=== PATIENT | female | born 1980 | race Caucasian/White ===

== ENCOUNTER 2022-02-04 16:37 | Emergency (ER) | payer OTHER, SELFPAY ==
--- NOTE | ~2022-02-04 | CT_ITS ---
EXAMINATION: CT ABDOMEN AND PELVIS WITHOUT CONTRAST CLINICAL INFORMATION: Left flank pain, hematuria. COMPARISON: Renal ultrasound 01/11/2017. TECHNIQUE: Multidetector volumetric imaging was performed from the superior aspect of the liver through the pubic symphysis. Sagittal and coronal reformatted images were obtained on the technologist's workstation. This CT examination was performed using dose optimization techniques as appropriate, variously including the following: *Automated exposure control *Adjustment of mA and/or kV according to patient size (this includes techniques or standardized protocols for targeted exams where dose is matched to indication/reason for exam; i.e. extremities or head) *Use of iterative reconstruction technique DLP: 488 mGy-cm FINDINGS: LUNG BASES: No focal consolidation or pleural effusion. There is a triangularly shaped 3 mm perifissural nodule along the right minor fissure (4:15), favored to represent a lymph node. There is a tiny calcified nodule in the medial right lung base (4:91). LIVER, GALLBLADDER, AND BILIARY TREE: Hepatomegaly with decreased attenuation of the parenchyma suggesting hepatic steatosis. No discrete focal liver lesion in this limited noncontrast examination. Normal appearance of the gallbladder. No biliary ductal dilatation. PANCREAS: Unremarkable. SPLEEN: Unremarkable. ADRENAL GLANDS: Unremarkable. KIDNEYS AND URETERS: There is mild left hydroureteronephrosis with a 0.3 cm calculus in the left ureter at the level of L4-L5 (3:52). There are several additional left-sided renal calculi measuring up to 3 mm, in the number of approximately 5 in total. There are couple of punctate calculi in the upper right kidney. No perinephric fat stranding. BLADDER: Underdistended limiting its evaluation. GASTROINTESTINAL TRACT: The stomach and the small bowel are nondilated. Small duodenal diverticulum. There are some nonspecific fluid-filled loops of small bowel in the lower abdomen and pelvis. Normal appendix. Mild colonic diverticulosis. No pericolonic inflammatory changes or evidence of bowel obstruction. Moderate degree of colonic stool burden. ABDOMINAL WALL: No significant hernia is appreciated. LYMPH NODES: No pathologically enlarged lymph nodes. VASCULAR: Abdominal aorta is of normal diameter. PELVIC VISCERA: There is a 2.7 cm water density cyst in the left ovary, almost certainly benign, for which no imaging follow-up is routinely recommended in a premenopausal patient. OSSEOUS STRUCTURES: Grade 1 anterolisthesis of L5 on S1 with bilateral L5 pars defects. No aggressive appearing osseous abnormalities. CT/CT abdomen pelvis wo IV con IMPRESSION: 1. Mild left hydroureteronephrosis with a 0.3 cm calculus in the left ureter at the level of L4-L5. 2. Multiple additional bilateral renal calculi. 3. Hepatomegaly and hepatic steatosis. 4. Mild diverticulosis but no evidence of acute diverticulitis. 5. Fluid-filled loops of small bowel in the lower abdomen and pelvis could indicate gastroenteritis or diarrhea in the appropriate clinical context.
[2022-02-04 16:40] VITALS: BP 135/84; PULSE 85; RESP 20; TEMP 36.6; O2SAT 100; BMI 26.2
[2022-02-04 16:51] LABS: MANUAL DIFF FLAG NO
[2022-02-04 16:53] LABS: Basophils Percent Auto 0.4 % (0-2); Eosinophils Absolute Auto 0.1 X10*3/uL (0.0-0.4); Eosinophils Percent Auto 1.2 % (0-4); Hematocrit 37.7 % (37.0-47.0); Hemoglobin 12.4 g/dl (12.0-16.0); Imm Gran Abs Auto 0.02 X10*3/uL (0.00-0.03); Imm Gran Pct Auto 0.2 % (0.0-0.4); Lymphocytes Absolute Auto 3.2 X10*3/uL (1.2-4.9); Lymphocytes Percent Auto 35.1 % (20-40); Mean Corpuscular HGB Conc 32.9 g/dl (31.0-35.0); Mean Corpuscular Hemoglobin 27.7 pg (27.0-33.0); Mean Corpuscular Volume 84.3 fL (80.0-98.0); Mean Platelet Volume 9.2 fL (9.4-12.3); Monocytes Absolute Auto 0.7 X10*3/uL (0.1-1.2); Monocytes Percent Auto 7.2 % (2-11); Neutrophils Absolute Auto 5.2 x10*3/uL (2.0-8.3); Neutrophils Percent Auto 55.9 % (45-73); Platelet Count 345 X10*3/uL (160-400); Red Blood Count 4.47 X10*6/uL (4.20-5.50); Red Cell Distribution Width 12.3 % (11.0-16.0); White Blood Count 9.2 X10*3/uL (4.8-10.8)
[2022-02-04 17:13] LABS: Appearance Urine Clear; Color Urine Yellow; Glucose Urine UA Negative (Negative); Leukocyte Esterase Urine Negative (Negative); Nitrite Urine Negative (Negative); PH 6.5 (5.0-9.0); UMIC TRIGGER UACC YES; Urine Blood Moderate (2+) (Negative); Urine Ketones Trace mg/dL (Negative); Urine Protein Trace mg/dL (Neg-Trace)
[2022-02-04 17:17] LABS: Anion Gap 18 (12-20); Blood Urea Nitrogen 11 mg/dL (9-16); Calcium 9.5 mg/dL (8.4-10.2); Carbon Dioxide 23 mmol/L (22-29); Chloride 103 mmol/L (96-108); Estimated Glomerular Filt Rate > 60; Glucose Random 98 mg/dL (60-115); Potassium 4.3 mmol/L (3.3-5.1); Sodium 140 mmol/L (135-145)
[2022-02-04 17:18] LABS: Bacteria Urine None Seen (None Seen); Hyaline Casts Urine 0-2 /LPF (0-2); RBC Urine >20 /HPF (0-2); Squamous Epithelial Cell Urine 0-2 /HPF (0-2); WBC Urine 0-5 /HPF (0-5)
[2022-02-04 22:43] LABS: UPreg QC Valid YES; Urine Pregnancy NEGATIVE (NEGATIVE)
[2022-02-04 22:58] VITALS: BP 111/78; PULSE 87; RESP 20; TEMP 36.7; O2SAT 93
--- NOTE | 2022-02-04 23:01 | ED_ITS ---
HPI - Female Genitourinary General Chief complaint: Urogenital-Female Stated complaint: urinating blood, kid stoney, back flank pain, abd. Time Seen by Provider: 02/04/22 22:33 Source: patient Mode of arrival: ambulatory Limitations: no limitations History of Present Illness HPI Narrative: Patient comes to the emergency room complaining of hematuria and left-sided flank pain. Patient denies dysuria, no fever or chills. Patient states that she has had kidney stones in the past, she has had lithotripsies and stents in the past. Related Data Previous Rx's Medication Instructions Recorded ketorolac 10 mg tablet 10 mg PO BID PRN pain 5 days #7 02/05/22 tabs ondansetron HCl 4 mg tablet 4 mg PO Q6H PRN nausea and 02/05/22 vomiting #10 tabs tamsulosin 0.4 mg capsule 0.4 mg PO DAILY #7 caps 02/05/22 Allergies Allergy/AdvReac Type Severity Reaction Status Date / Time No Known Allergies Allergy Unverified 12/19/19 15:22 Review of Systems Review of Systems: Constitutional : No Weight loss, No Fever, No Chills, No Night Sweats, No Fatigue, No Malaise ENT/Mouth : No Hearing loss, No Ear Pain, No Nasal Congestion, No Sinus Pain, No Hoarseness, No sore throat, No Rhinorrhea, No Swallowing Difficulty Eyes: No Eye Pain, No Swelling, No Redness, No Foreign Body, No Discharge, No Vision Changes Cardiovascular : No Chest Pain, No SOB, No Dyspnea on Exertion, No Orthopnea, No Edema, No Palpitations Respiratory : No Cough, No Sputum, No Wheezing, No Smoke Exposure, No Dyspnea Gastrointestinal : No Nausea, No Vomiting, No Diarrhea, No Constipation, No abdominal Pain, No Hematochezia, No Melena Genitourinary : no irregular bleeding, No Dysuria, No Urinary Frequency, complaining of Hematuria, No Urinary Incontinence, No Urgency, complaining of left-sided Flank Pain, No Urinary Flow Changes, No Hesitancy Musculoskeletal : No joint pain, No Myalgias, No Joint Swelling Skin : No Skin Lesions, No rash Neuro : No Weakness, No Numbness, No Paresthesias, No Loss of Consciousness, No Dizziness, No Headache Psych : No Anxiety/Panic, No Depression, No SI/HI/AH/VH, No Social Issues, Heme/Lymph: No Bruising, No Bleeding,No Lymphadenopathy Endocrine : No Polyuria, No Polydipsia, No Temperature Intolerance [facility] Past Medical History Medical History (Updated 02/05/22 @ 00:12 by Ariadna Purvis MD) Kidney stones Surgical History (Updated 02/04/22 @ 23:05 by Ariadna Purvis MD) S/P ureteral stent placement Social History Social History Alcohol intake: current Alcohol intake frequency: a few times a week Smoked in Last 30 Days: No Use of substances other than those prescribed or required for medical reasons: No Advance Directives: No Advance Directives Information Provided: No Patient : No Physical Exam Vital Signs: Vital Signs: Last Vital Signs Temp 98.0 F 02/04/22 22:58 Pulse 87 02/04/22 22:58 Resp 20 02/04/22 22:58 BP 111/78 02/04/22 22:58 Pulse Ox 93 02/04/22 22:58 O2 Del Method 02/04/22 22:58 BMI result Body Mass Index 26.2 Const: Other: Appearance: Alert. Oriented X3. No acute distress. Eyes: Pupils equal, round and reactive to light. ENT: Pharynx normal. Neck: Normal inspection. Neck supple. No lymph nodes noted. No crepitus CVS: Normal heart rate and rhythm. Pulses normal. Normal S1 and S2 Respiratory: No respiratory distress. Breath sounds normal. No Wheezing. No rales Abdomen: Soft and nontender. No rigidity. No distention. Positive CVA tenderness on the left Skin: Skin warm and dry. Normal skin color. Normal skin turgor. Extremities: No lower extremity edema. No Lacerations. No Rash Neuro: Oriented X 3. No motor deficit. No sensory deficit. Moving all extremities. No slurred speech. CN 2 through 12 grossly intact Psych: calm, cooperative, normal affect Course Course Course Narrative: Patient states that she is tolerating the pain fairly well. However it is intermittent. Patient given 1 dose of IM Toradol and p.o. Reglan the nausea. Patient also complaining of mild headache. Urinalysis positive for blood, no UTI. CT scan pending. Patient does have history of ureterolithiasis Please scan shows a 3 mm stone. Patient will follow-up with her primary care physician and urologist. Patient states that after the IM Toradol shot she started feeling much better and also no longer has a headache MDM - Female Genitourinary Lab Data Result diagrams: 02/04/22 16:47 02/04/22 16:47 Labs: Lab Results 02/04/22 02/04/22 02/04/22 Range/Units 16:47 16:47 16:56 WBC 9.2 (4.8-10.8) X10*3/uL RBC 4.47 (4.20-5.50) X10*6/uL Hgb 12.4 (12.0-16.0) g/dl Hct 37.7 (37.0-47.0) % MCV 84.3 (80.0-98.0) fL MCH 27.7 (27.0-33.0) pg MCHC 32.9 (31.0-35.0) g/dl RDW 12.3 (11.0-16.0) % Plt Count 345 (160-400) X10*3/uL MPV 9.2 L (9.4-12.3) fL Immature Gran % (Auto) 0.2 (0.0-0.4) % Neut % (Auto) 55.9 (45-73) % Lymph % (Auto) 35.1 (20-40) % [place] % (Auto) 7.2 (2-11) % Eos % (Auto) 1.2 (0-4) % Baso % (Auto) 0.4 (0-2) % Lymph # (Auto) 3.2 (1.2-4.9) X10*3/uL [place] # (Auto) 0.7 (0.1-1.2) X10*3/uL Eos # (Auto) 0.1 (0.0-0.4) X10*3/uL Baso # (Auto) 0.0 (0.0-0.2) X10*3/uL Abs Immat Gran (auto) 0.02 (0.00-0.03) X10*3/uL Absolute Neuts (auto) 5.2 (2.0-8.3) x10*3/uL Absolute Nucleated RBC 0.000 (0.0-0.012) X10*3/uL Nucleated RBC % (auto) 0.0 (0.0-0.2) /100WBC Sodium 140 (135-145) mmol/L Potassium 4.3 (3.3-5.1) mmol/L Chloride 103 (96-108) mmol/L Carbon Dioxide 23 (22-29) mmol/L Anion Gap 18 (12-20) BUN 11 (9-16) mg/dL Creatinine 0.72 (0.5-1.4) mg/dL Estim Creat Clear Calc 104.0 Estimated GFR > 60 Random Glucose 98 (60-115) mg/dL Calcium 9.5 (8.4-10.2) mg/dL Urine Color Yellow Urine Appearance Clear Urine pH 6.5 (5.0-9.0) Ur Specific [place] 1.020 (1.005-1.025) Urine Protein Trace (Neg-Trace) mg/dL Urine Glucose (UA) Negative (Negative) mg/dL Urine Ketones Trace (Negative) mg/dL Urine Blood Moderate (2+) H (Negative) Urine Nitrite Negative (Negative) Ur Leukocyte Esterase Negative (Negative) Urine RBC >20 H (0-2) /HPF Urine WBC 0-5 (0-5) /HPF Ur Squamous Epith Cells 0-2 (0-2) /HPF Urine Bacteria None Seen (None Seen) Hyaline Casts 0-2 (0-2) /LPF Urine Test (NEGATIVE) 02/04/22 Range/Units 16:56 WBC (4.8-10.8) X10*3/uL RBC (4.20-5.50) X10*6/uL Hgb (12.0-16.0) g/dl Hct (37.0-47.0) % MCV (80.0-98.0) fL MCH (27.0-33.0) pg MCHC (31.0-35.0) g/dl RDW (11.0-16.0) % Plt Count (160-400) X10*3/uL MPV (9.4-12.3) fL Immature Gran % (Auto) (0.0-0.4) % Neut % (Auto) (45-73) % Lymph % (Auto) (20-40) % [place] % (Auto) (2-11) % Eos % (Auto) (0-4) % Baso % (Auto) (0-2) % Lymph # (Auto) (1.2-4.9) X10*3/uL [place] # (Auto) (0.1-1.2) X10*3/uL Eos # (Auto) (0.0-0.4) X10*3/uL Baso # (Auto) (0.0-0.2) X10*3/uL Abs Immat Gran (auto) (0.00-0.03) X10*3/uL Absolute Neuts (auto) (2.0-8.3) x10*3/uL Absolute Nucleated RBC (0.0-0.012) X10*3/uL Nucleated RBC % (auto) (0.0-0.2) /100WBC Sodium (135-145) mmol/L Potassium (3.3-5.1) mmol/L Chloride (96-108) mmol/L Carbon Dioxide (22-29) mmol/L Anion Gap (12-20) BUN (9-16) mg/dL Creatinine (0.5-1.4) mg/dL Estim Creat Clear Calc Estimated GFR Random Glucose (60-115) mg/dL Calcium (8.4-10.2) mg/dL Urine Color Urine Appearance Urine pH (5.0-9.0) Ur Specific [place] (1.005-1.025) Urine Protein (Neg-Trace) mg/dL Urine Glucose (UA) (Negative) mg/dL Urine Ketones (Negative) mg/dL Urine Blood (Negative) Urine Nitrite (Negative) Ur Leukocyte Esterase (Negative) Urine RBC (0-2) /HPF Urine WBC (0-5) /HPF Ur Squamous Epith Cells (0-2) /HPF Urine Bacteria (None Seen) Hyaline Casts (0-2) /LPF Urine Test NEGATIVE (NEGATIVE) Imaging Data CT scan - abdomen: Radiologist's impression: FINDINGS: LUNG BASES: No focal consolidation or pleural effusion. There is a triangularly shaped 3 mm perifissural nodule along the right minor fissure (4:15), favored to represent a lymph node. There is a tiny calcified nodule in the medial right lung base (4:91).? LIVER, GALLBLADDER, AND BILIARY TREE: Hepatomegaly with decreased attenuation of the parenchyma suggesting hepatic steatosis. No discrete focal liver lesion in this limited noncontrast examination. Normal appearance of the gallbladder. No biliary ductal dilatation. PANCREAS: Unremarkable.? SPLEEN: Unremarkable.? ADRENAL GLANDS: Unremarkable.? KIDNEYS AND URETERS: There is mild left hydroureteronephrosis with a 0.3 cm calculus in the left ureter at the level of L4-L5 (3:52). There are several additional left-sided renal calculi measuring up to 3 mm, in the number of approximately 5 in total. There are couple of punctate calculi in the upper right kidney. No perinephric fat stranding.? BLADDER: Underdistended limiting its evaluation.? GASTROINTESTINAL TRACT: The stomach and the small bowel are nondilated. Small duodenal diverticulum. There are some nonspecific fluid-filled loops of small bowel in the lower abdomen and pelvis. Normal appendix. Mild colonic diverticulosis. No pericolonic inflammatory changes or evidence of bowel obstruction. Moderate degree of colonic stool burden. ? ABDOMINAL WALL: No significant hernia is appreciated.? LYMPH NODES: No pathologically enlarged lymph nodes. VASCULAR: Abdominal aorta is of normal diameter. PELVIC VISCERA: There is a 2.7 cm water density cyst in the left ovary, almost certainly benign, for which no imaging follow-up is routinely recommended in a premenopausal patient.? OSSEOUS STRUCTURES: Grade 1 anterolisthesis of L5 on S1 with bilateral L5 pars defects. No aggressive appearing osseous abnormalities.? CT/CT abdomen pelvis wo IV con IMPRESSION: 1.? Mild left hydroureteronephrosis with a 0.3 cm calculus in the left ureter at the level of L4-L5. 2.? Multiple additional bilateral renal calculi. 3.? Hepatomegaly and hepatic steatosis. 4.? Mild diverticulosis but no evidence of acute diverticulitis. 5.? Fluid-filled loops of small bowel in the lower abdomen and pelvis could indicate gastroenteritis or diarrhea in the appropriate clinical context. Discharge Plan Discharge Clinical Impression: Ureterolithiasis Patient Disposition: Home, Self-Care Instructions: Kidney Stones (ED) Additional Instructions: Please follow-up with your primary care physician tomorrow. If you have any worsening or new symptoms, please return to the emergency room or call 911 Prescriptions: New ketorolac 10 mg tablet 10 mg PO BID PRN (Reason: pain) 5 Days Qty: 7 0RF ondansetron HCl 4 mg tablet 4 mg PO Q6H PRN (Reason: nausea and vomiting) Qty: 10 0RF tamsulosin 0.4 mg capsule 0.4 mg PO DAILY Qty: 7 0RF Referrals: Alyson Esparza MD [Physician] - 02/07/22
[2022-02-04] MEDS: Metoclopramide HCl 10 MG TABLET PO (23:18)
[2022-02-04] MEDS: Ketorolac Tromethamine 60 MG/2 ML VIAL IM (23:18)
== END 2022-02-05 00:28 | disposition home or self-care (01) ==
PROVIDERS: Emergency Provider Emergency Medicine; PCP Physician Assistant
DX: N20.1 Calculus of ureter (principal); R31.9 Hematuria, unspecified; R10.9 Unspecified abdominal pain; Z79.899 Other long term (current) drug therapy
CPT/HCPCS: 36415; 74176; 80048; 81001; 81025; 85025; 96372; 99284; J1885